=== PATIENT | female | born 1945 | race Caucasian/White ===

== ENCOUNTER 2017-08-05 15:57 | Emergency (ER) | payer MEDICARE ==
[~2017-08-05] VITALS: Ht 175.3 cm; Wt 75.0 kg
[~2017-08-05 15:57] MED LIST: ASPI81TA3 PO; DONE10TA7 PO; LUBI24CA7 PO; MEMA10TA16 PO; METO-448 PO; POTA10TA98 PO
[2017-08-05 16:14] VITALS: Ht 175.3 cm; Wt 75.0 kg
[2017-08-05] MEDS ORDERED: LIDOCAINE 2%/EPI MPF (SDV) 20 ML VIAL INJ STA (16:46)
--- NOTE | 2017-08-05 16:57 | ERD ---
ER Documentation Chief Complaint Chief Complaint BIBA FOR LAC ON RIGHT EYEBROW,S/P FALL.FROM [facility] HPI 72-year-old female with a history of dementia and hypertension brought into the ER from her alf after an unwitnessed fall. The patient is unable to give any history due to her severe dementia. She denies falling. When I note the cut on her eyebrow and ask if it hurts, she states it has always been there. History is thus limited. ROS Limited secondary to chronic dementia Medications Home Meds Active Scripts Potassium Chloride (K-Tab) 10 Meq Tablet.sa, 10 MEQ PO DAILY, #30 TAB.SA Prov:BANDAR RODARTE MD 07/01/16 Lubiprostone* (Amitiza*) 24 Mcg Capsule, 24 MCG PO BID, #60 CAP Prov:BANDAR RODARTE MD 07/01/16 Metoprolol Tartrate* (Lopressor*) 25 Mg Tab, 12.5 MG PO BID, #60 TAB Prov:BANDAR RODARTE MD 07/01/16 Reported Medications Aspirin* (Aspirin* EC) 81 Mg Tablet.dr, 81 MG PO DAILY, TAB 08/05/17 Memantine* (Namenda*) 10 Mg Tablet, 10 MG PO BID, #60 TAB 02/08/16 Donepezil* (Donepezil*) 10 Mg Tablet, 10 MG PO DAILY, #30 TAB 02/08/16 Discontinued Scripts Aspirin (Aspirin) 81 Mg Chew, 81 MG PO DAILY for 30 Days, TAB Prov:BANDAR RODARTE MD 02/11/16 Allergies Allergies: Coded Allergies: No Known Allergy (Unverified , 08/05/17) PMhx/Soc History of Surgery: No Anesthesia Reaction: No Hx Neurological Disorder: Yes (DEMENTIA) Hx Respiratory Disorders: No (UNKNOWN) Hx Cardiac Disorders: Yes (HTN) Hx Psychiatric Problems: Yes (DEMENTIA) Hx Miscellaneous Medical Probl: Yes (dementia,htn,UTI,LE cellulitis,renal failuer.paroxysmal afib) Hx Alcohol Use: No Hx Substance Use: No Hx Tobacco Use: No Smoking Status: Unknown if ever smoked FmHx Family History: other (Unable to obtain) Physical Exam Vitals Vital Signs Date Time Temp Pulse Resp B/P Pulse Ox O2 Delivery O2 Flow Rate FiO2 08/05/17 19:19 85 17 150/74 100 Room Air 08/05/17 17:50 98.1 88 18 145/78 98 08/05/17 16:14 98.1 82 18 152/85 98 Physical Exam Const: No apparent distress Head: Bilateral lateral brow contusions with laceration over the right lateral eyebrow Eyes: Normal Conjunctiva PERRLA, EOMI ENT: Normal External Ears, Nose and Mouth. No intraoral injury. Teeth appear atraumatic al Neck: Full range of motion. No C-spine tenderness. No meningismus. Resp: Clear to auscultation bilaterally Cardio: Regular rate and rhythm, no murmurs Abd: Soft, non tender, non distended. Skin: No petechiae or rashes Back: No midline or flank tenderness Ext: No cyanosis, or edema. No deformities. Normal to inspection and palpation Neur: Awake and alert, oriented only to self, normal speech. Moving all extremities spontaneously. Psych: easily agitated Result Diagram: 08/05/17 1655 08/05/17 1655 Results 24 hrs Laboratory Tests Test 08/05/17 16:55 White Blood Count 11.210^3/ul Red Blood Count 4.5310^6/ul Hemoglobin 12.7g/dl Hematocrit 38.8% Mean Corpuscular Volume 85.7fl Mean Corpuscular Hemoglobin 28.0pg Mean Corpuscular Hemoglobin Concent 32.7g/dl Red Cell Distribution Width 16.9% Platelet Count 31176^3/UL Mean Platelet Volume 9.7fl Neutrophils % 70.5% Lymphocytes % 22.2% Monocytes % 5.7% Eosinophils % 0.8% Basophils % 0.4% Nucleated Red Blood Cells % 0.0/100WBC Neutrophils # 7.910^3/ul Lymphocytes # 2.510^3/ul Monocytes # 0.610^3/ul Eosinophils # 0.110^3/ul Basophils # 0.010^3/ul Nucleated Red Blood Cells # 0.010^3/ul Sodium Level 142mmol/L Potassium Level 4.2mmol/L Chloride Level 103mmol/L Carbon Dioxide Level 25mmol/L Anion Gap 18 Blood Urea Nitrogen 22mg/dl Creatinine 0.96mg/dl Glucose Level 150mg/dl Calcium Level 9.3mg/dl Troponin I < 0.012ng/ml Current Medications Medications (Trade) Dose Ordered Sig/Tali Route PRN Reason Start Time Stop Time Status Last Admin Dose Admin Lidocaine/ Epinephrine (Xylocaine 2%/ Epi Mpf(Sdv)) 20 ml ONCE STAT INJ 08/05/17 16:46 08/05/17 17:17 DC Lidocaine (Xylocaine 1% (Mdv) 20 ml) 20 ml STK-MED ONCE .ROUTE 08/05/17 17:15 08/05/17 17:16 DC Lidocaine/ Epinephrine (Xylocaine 2%/ Epi Mpf(Sdv)) 20 ml ONCE ONCE INJ 08/05/17 17:30 08/05/17 17:30 DC Lidocaine (Xylocaine 1% (Mdv) 20 ml) 20 ml ONCE ONCE SC 08/05/17 17:30 08/05/17 17:31 DC Procedures/[facility] EKG: Rate/Rhythm: Normal Sinus Rhythm QRS, ST, T-waves: Left bundle branch block, negative for Sgarbossa criteria Impression: No evidence of ischemia or arrhythmia Imaging: CT head/face: No acute fractures, soft tissue swelling noted CXR: no acute abnormalities Labs CBC: no anemia or evidence of infection CMP: No evidence of electrolyte abnormality, renal failure, hypoglycemia, liver failure, or biliary obstruction Troponin within normal limits Laceration Repair by me: Anesthesia: 1% lidocaine locally Location: Right eyebrow/forehead Tendon/Joint/Nerves: No injury Foreign body: None detected after copious irrigation and exploration Technique: Simple Interrupted Sutures with absorbable sutures Complexity: No subcutaneous sutures/mucosal repair. +edge excision Post Closure Length: 3 cm Initiation of Seclusion/Restraint time of evaluation 17:49 This patient was placed in Seclusion/Restraint because: Danger to self, danger to others Less restrictive measures of verbal interventions/reminders, security standby, medications offered/given, nursing interventions based on Face to Face assessment findings, alteration to physical environment/reduce stimuli were attempted prior to restraint and/or seclusion. I performed a face to face assessment within one hour of the restraint/ seclusion at time 18:49. Patients condition at assessment is: still agitated and trying to climb out of bed. Restraints were continued until the patient was discharged. [facility] Patient is presenting for an eyebrow laceration and head contusion after an unwitnessed fall. Her workup does not show any evidence of acute coronary syndrome, acute infection, or significant dehydration. Patient's bleeding was easily controlled in the department and there is no indication of anemia. CT of her head and face did not show any significant abnormalities. Her laceration was repaired without complications. Patient lives in a alf and will be sent back to her alf with instructions to follow-up with her primary care doctor that takes care of further. Return precautions were written in the discharge paperwork. Laceration care was also discussed in the discharge papers. Patient is appropriate for outpatient follow up. 48 hour wound check. Scar minimization instructions given. Departure Diagnosis: Primary Impression: Unwitnessed fall Additional Impression: Laceration of eyebrow and forehead Encounter type: initial encounter Laterality: right Qualified Code: S01.81XA - Laceration of eyebrow and forehead, right, initial encounter Condition: Fair MERCEDES SHEARER MD Aug 05, 2017 16:57
[2017-08-05 17:09] LABS: BASOPHILS % 0.4 % (0.0-2.0); EOSINOPHILS # 0.1 10^3/ul (0.0-0.5); EOSINOPHILS % 0.8 % (0.0-7.0); HEMATOCRIT 38.8 % (37.0-47.0); HEMOGLOBIN 12.7 g/dl (12.0-16.0); LYMPHOCYTES # 2.5 10^3/ul (0.8-2.9); LYMPHOCYTES % 22.2 % (15.0-51.0); MEAN CORPUSCULAR HGB CONC 32.7 g/dl (32.0-37.0); MEAN CORPUSCULAR VOLUME 85.7 fl (82.0-101.0); MEAN PLATELET VOLUME 9.7 fl (7.4-10.4); MONOCYTE # 0.6 10^3/ul (0.3-0.9); MONOCYTES % 5.7 % (0.0-11.0); NEUTROPHIL # 7.9 10^3/ul (1.6-7.5); NEUTROPHILS % 70.5 % (39.0-77.0); PLATELET COUNT 265 10^3/UL (140-415); RED BLOOD COUNT 4.53 10^6/ul (4.20-5.40); RED CELL DISTRIBUTION WIDTH 16.9 % (11.5-14.5); WHITE BLOOD COUNT 11.2 10^3/ul (4.8-10.8)
[2017-08-05] MEDS ORDERED: LIDOCAINE 1% (MDV) 20 ML INJ ONE (17:15)
[2017-08-05] MEDS ORDERED: ASPI-664 PO (17:21)
[2017-08-05 17:27] LABS: ANION GAP 18 (8-16); BLOOD UREA NITROGEN 22 mg/dl (7-20); CALCIUM 9.3 mg/dl (8.4-10.2); CARBON DIOXIDE 25 mmol/L (21-31); CHLORIDE 103 mmol/L (97-110); CREATININE 0.96 mg/dl (0.44-1.00); GLUCOSE 150 mg/dl (70-220); POTASSIUM 4.2 mmol/L (3.5-5.1); SODIUM 142 mmol/L (135-144)
[2017-08-05] MEDS ORDERED: LIDOCAINE 2%/EPI MPF (SDV) 20 ML VIAL INJ ONE (17:30)
[2017-08-05] MEDS ORDERED: LIDOCAINE 1% (MDV) 20 ML INJ SC ONE (17:30)
--- NOTE | 2017-08-05 17:37 | RADRPT ---
PROCEDURE: XR Chest. CLINICAL INDICATION: Pain status post fall. TECHNIQUE: Chest x-ray, single view. COMPARISON: CR CHEST 06/19/2016. FINDINGS: The cardiac silhouette is slightly magnified and grossly unchanged in size. Aortic arch atherosclero tic calcification is present. Hyperinflation is observed. There is no focal pulmonary parenchymal o pacification or evidence of pleural effusion. There is no evidence of pneumothorax. Degenerative ch anges of the thoracic spine are observed. The visualized upper abdomen is unremarkable. IMPRESSION: Mild hyperinflation, unchanged. Thoracic aortic atherosclerosis. RPTAT: HLST .Lacey Rodriguez MD, Date Time Electronically viewed and signed by .Lacey Rodriguez MD, on 08/05/2017 17:36 .T/
[2017-08-05 17:43] LABS: TROPONIN-I < 0.012 ng/ml (0.00-0.12)
--- NOTE | 2017-08-05 17:56 | RADRPT ---
PROCEDURE: CT Brain without contrast. CLINICAL INDICATION: Trauma, pain. TECHNIQUE: A CT of the brain was performed on multidetector high-resolution CT scanner utilizing a xial sections from the skull base through the vertex without contrast. The scan was reviewed in sof t tissue brain and high frequency resolution bone algorithm windows. Images were reviewed on a high -resolution PACS workstation. One or more the following does reduction techniques were utilized: Aut omated exposure control, adjustment of the mA/ or kV according to patient's size, or use of iterativ e reconstruction technique. The exam CTDI = 45.01 mGy and the DLP = 810.25 mGy-cm. DICOM images are available. COMPARISON: Brain CT 06/19/2016. FINDINGS: Multiple images are degraded by motion. The ventricles and sulci are mildly to moderately prominent indicative of volume loss. There is mild cerebellar volume loss. There is no intracranial hemorrhage, mass effect or midline shift. No abn ormal intra-axial or extra-axial fluid collections are seen. The palmer/white matter differentiation i s preserved. There are mild scattered foci of hypoattenuation in the white matter, which are nonspecific in etiol ogy but likely reflect chronic small vessel ischemic changes. There are mild intracranial vascular calcifications consistent with atherosclerosis. The visualized paranasal sinuses demonstrate partial opacification of partially visualized right maxillary sinus. The mastoid air cells are essentially clear. Left frontal scalp and left periorbital soft tissue swelling and hematoma are noted without u nderlying skull fracture. There are small right frontal scalp air densities. IMPRESSION: 1. No acute intracranial hemorrhage, transcortical infarction or mass effect. 2. Mild intracranial atherosclerosis and chronic small vessel ischemic changes. 3. Mild to moderate generalized cerebral and mild cerebellar volume loss. 4. Left frontal scalp and left periorbital soft tissue swelling and hematoma are noted without unde rlying skull fracture. Small right frontal scalp air densities. RPTAT: HH .Mckenzie Sheth MD, MD Date Time Electronically viewed and signed by .Mckenzie Sheth MD, MD on 08/05/2017 17:56 .N/
--- NOTE | 2017-08-05 18:02 | RADRPT ---
PROCEDURE: CT facial bones CLINICAL INDICATION: Trauma TECHNIQUE: CT of the facial bones was performed on a multidetector CT scanner utilizing high-reso lution axial images. Sagittal, coronal, and multiplanar reformatted images were made. Additionally , 3-D reformatted images were made. The CTDIvol is 22 mGy and the DLP is 583 mGy-cm. Individualized dose optimization technique was used for the performance of this exam. This included 1. Automated exposure control. 2. Adjustment of the mA and/or kV according to the patient's size. 3. Use of iterative reconstruction technique. COMPARISON: None. FINDINGS: There is motion artifact limiting the sensitivity of the study. No facial fracture is visualized. The pterygoids are intact. Temporomandibular joints are intact wit h anatomic alignment. There is left supraorbital soft tissue swelling. The globe is intact. No retro bulbar are or extra coronal hemorrhage is seen. The right maxillary sinus is relatively atrophic. Th ere is mucoperiosteal thickening with thickening of the surrounding bone compatible with chronic sin usitis. There is otherwise normal aeration of the paranasal sinuses. There is nasal septal deviation to the right. The ostiomeatal complexes are patent. IMPRESSION: No fracture. Left periorbital preseptal soft tissue swelling. Globe is intact with no retrobulbar he morrhage. Chronic right maxillary sinusitis. .Juan Frankel MD, Date Time Electronically viewed and signed by .Juan Frankel MD, on 08/05/2017 18:03 .A/
[2017-08-05 19:19] VITALS: BP 150/74; PULSE 85; RESP 17
== END 2017-08-05 19:43 | disposition home or self-care (01) ==
LOC: E/R 15:57
DX: S01.81XA Laceration without foreign body of other part of head, initial encounter (principal); I10 Essential (primary) hypertension; R40.2122 Coma scale, eyes open, to pain, at arrival to emergency department; R40.2242 Coma scale, best verbal response, confused conversation, at arrival to emergency department; R40.2352 Coma scale, best motor response, localizes pain, at arrival to emergency department; W19.XXXA Unspecified fall, initial encounter; Y92.129 Unspecified place in nursing home as the place of occurrence of the external cause; Z79.82 Long term (current) use of aspirin
CPT/HCPCS: 70450; 70486; 71010; 72125; 80048; 84484; 85025; 93005